=== PATIENT | female | born 1995 | race Caucasian/White ===

== ENCOUNTER 2016-09-21 15:05 | Emergency (ER) | payer SELFPAY ==
--- NOTE | 2016-09-21 16:54 | ER Document Report ---
ED Medical Screen (RME) - General Chief Complaint: Abdominal Cramping Stated Complaint: ABDOMINAL CRAMPING Time seen by provider: 16:53 Mode of Arrival: Ambulatory Information source: Patient Notes: This is a 21-year-old female 3 para 2, positive home test this week, presents with lower abdominal cramping. Patient denies vaginal bleeding. TRAVEL OUTSIDE OF THE [place] IN LAST 30 DAYS: No - HPI Onset: Yesterday Onset/Duration: Gradual Quality of pain: No pain Severity: None Pain Level: Denies Associated Symptoms: denies: Chills, Fever, Shortness of breath Exacerbated by: Denies Relieved by: Denies Similar symptoms previously: No Recently seen / treated by doctor: No - Related Data Smoking: Non-smoker Frequency of alcohol use: None Drug Abuse: None Allergies/Adverse Reactions: shellfish derived Allergy (Verified 09/21/16 15:37) Past Medical History - General Information source: Patient - Social History Cigarette use (# per day): No Chew tobacco use (# tins/day): No Frequency of alcohol use: None Drug Abuse: None Lives with: Family Family history: Reviewed & Not Pertinent - Medical History Medical History: Negative Renal/ Medical History: Denies: Hx Peritoneal Dialysis Past Surgical History: Reports: Hx Oral Surgery - [place]eth Review of Systems - Review of Systems Constitutional: No symptoms reported EENT: No symptoms reported Cardiovascular: No symptoms reported Respiratory: No symptoms reported Gastrointestinal: See HPI Genitourinary: See HPI Female Genitourinary: See HPI Musculoskeletal: No symptoms reported Skin: No symptoms reported Hematologic/Lymphatic: No symptoms reported Neurological/Psychological: No symptoms reported Physical Exam - Vital signs Vitals: Temp Pulse Resp BP Pulse Ox 98.6 F 72 16 113/72 98 09/21/16 15:36 09/21/16 15:36 09/21/16 15:36 09/21/16 15:36 09/21/16 15:36 Notes: Physical exam: GENERAL: 81-year-old female, alert and oriented 3, no acute distress HEAD: Atraumatic, normocephalic. EYES: Pupils equal round and reactive to light, extraocular movements intact, sclera anicteric, conjunctiva are normal. ENT: TMs normal, nares patent, oropharynx clear without exudates. Moist mucous membranes. NECK: Normal range of motion, supple without lymphadenopathy or JVD. LUNGS: Breath sounds clear to auscultation bilaterally and equal. No wheezes rales or rhonchi. HEART: Regular rate and rhythm without murmurs, rubs or gallops. ABDOMEN: Soft, normoactive bowel sounds. No tenderness to palpation. No guarding, no rebound. No masses appreciated. EXTREMITIES: Normal range of motion, no pitting or edema. No clubbing or cyanosis. NEUROLOGICAL: Cranial nerves II through XII grossly intact. Normal speech, normal gait. PSYCH: Normal mood, normal affect. SKIN: Warm, Dry, normal turgor, no rashes or lesions noted. Course - Vital Signs Vital signs: Temp Pulse Resp BP Pulse Ox 98.6 F 72 16 113/72 98 09/21/16 15:36 09/21/16 15:36 09/21/16 15:36 09/21/16 15:36 09/21/16 15:36 - Laboratory Result Diagrams: 09/21/16 17:20 Laboratory results interpreted by me: 09/21/16 17:20 Urine Blood SMALL H Doctor's Discharge - Discharge Clinical Impression: pelvic cramping Condition: Stable Disposition: HOME, SELF-CARE Additional Instructions: As we discussed, the test was negative. This is a blood test soda is very accurate. At this point, I would take Tylenol for cramping follow-up with your doctor. Return to the emergency room for worsening pain, worsening cramping or any concerns he getting worse.
[2016-09-21 18:07] LABS: APPEARANCE,URINE CLEAR; BILIRUBIN,URINE NEGATIVE (NEGATIVE); GLUCOSE, URINE NEGATIVE (NEGATIVE); KETONES,URINE NEGATIVE (NEGATIVE); LEUKOCYTE ESTERASE,URINE NEGATIVE (NEGATIVE); NITRITE,URINE NEGATIVE (NEGATIVE); PROTEIN,URINE NEGATIVE (NEGATIVE); URINE SPECIFIC GRAVITY 1.016; UROBILINOGEN,URINE NEGATIVE mg/dL (<2.0)
[2016-09-21 18:14] LABS: ABSOLUTE EOSINOPHILS # (AUTO) 0.3 10^3/uL (0.0-0.6); ABSOLUTE LYMPHOCYTES (AUTO) 2.7 10^3/uL (0.5-4.7); ABSOLUTE MONOCYTES (AUTO) 0.3 10^3/uL (0.1-1.4); BASOPHILS % (AUTO) 0.7 % (0-2); EOSINOPHILS % (AUTO) 4.8 % (0-6); HEMATOCRIT 41.1 % (36.0-47.0); HEMOGLOBIN 13.5 g/dL (12.0-15.5); HGB HCT DIFFERENCE -0.6; MEAN CORPUSCULAR HEMOGLOBIN 29.4 pg (27.0-33.4); MEAN CORPUSCULAR HGB CONC 32.9 g/dL (32.0-36.0); MEAN CORPUSCULAR VOLUME 89 fl (80-97); MONOCYTES % (AUTO) 4.3 % (3-13); RED BLOOD COUNT 4.59 10^6/uL (3.72-5.28); RED CELL DISTRIBUTION WIDTH 12.8 % (11.5-14.0); SEGMENTED NEUTROPHILS % (AUTO) 48.2 % (42-78); WHITE BLOOD COUNT 6.3 10^3/uL (4.0-10.5)
[2016-09-21 19:23] VITALS: BP 126/78
== END 2016-09-21 19:21 | disposition home or self-care (01) ==
LOC: ER 15:05
DX: R10.2 Pelvic and perineal pain (principal); Z91.013 Allergy to seafood
CPT/HCPCS: 36415; 81001; 84702; 85025; 86900; 86901; 99284

== ENCOUNTER 2017-06-29 17:41 | Emergency (ER) | payer SELFPAY ==
[2017-06-29 18:36] VITALS: BP 115/77
--- NOTE | 2017-06-29 22:14 | ER Document Report ---
HPI - HPI Patient complains to provider of: Vaginal bleeding Pain Level: 3 Context: Patient is a 21-year-old female who comes emergency department for chief complaint of irregular menstrual cycle. She states that she believes she is having implantation bleeding, she had bleeding started 3 days ago, increased 2 days ago, and now she has light spotting. She denies dizziness or passing out, states she has been tired. She denies pain. She denies vomiting, vaginal discharge, dysuria, flank pain, fever. She has been several times before. She denies any daily medications or contraceptives. She states based on the way she feels over the past days and weeks she thinks she is . Past Medical History - General Information source: Patient - Social History Smoking Status: Never Smoker Frequency of alcohol use: None Drug Abuse: None Lives with: Family Family History: Reviewed & Not Pertinent - Medical History Medical History: Negative Renal/ Medical History: Denies: Hx Peritoneal Dialysis Past Surgical History: Reports: Hx Oral Surgery - [place] Teeth - Immunizations Immunizations up to date: Yes Hx Diphtheria, Pertussis, Tetanus Vaccination: Yes Vertical Provider Document - CONSTITUTIONAL General Appearance: WD/WN, No Apparent Distress - INFECTION CONTROL TRAVEL OUTSIDE OF THE [place] IN LAST 30 DAYS: No - HEENT HEENT: Atraumatic, Normocephalic - NECK Neck: Normal Inspection - RESPIRATORY Respiratory: Breath Sounds Normal, No Respiratory Distress O2 Sat by Pulse Oximetry: 100 - CARDIOVASCULAR Cardiovascular: Regular Rate, Regular Rhythm - GI/ABDOMEN Gastrointestinal: Abdomen Soft, Abdomen Non-Tender. negative: Abdomen Tender, Abdominal Guarding - BACK Back: Normal Inspection - MUSCULOSKELETAL/EXTREMETIES Musculoskeletal/Extremeties: MAEW, FROM, Non-Tender - NEURO Level of Consciousness: Awake, Alert, Appropriate - DERM Integumentary: Warm, Dry, No Rash Course - Re-evaluation Re-evalutation: Soft and nontender abdomen/pelvis. Patient denies any current symptoms other than intermittent bleeding. She thinks she is and bleeding. CBC unremarkable, hCG is negative. Vital signs unremarkable, patient continues to be well-appearing on reexamination with no current symptoms. I did discuss an ultrasound and additional workup, after discussion this was declined. Patient to follow up routinely with her provider, discussed return precautions, patient states understanding and agreement. - Vital Signs Vital signs: Temp Pulse Resp BP Pulse Ox 98.0 F 60 16 115/77 100 06/29/17 18:30 06/29/17 18:30 06/29/17 18:30 06/29/17 18:30 06/29/17 18:30 - Laboratory Result Diagrams: 06/29/17 22:22 Discharge - Discharge Clinical Impression: Metrorrhagia Condition: Stable Disposition: HOME, SELF-CARE Additional Instructions: Your test is negative. Your blood counts are normal. The exact cause of your irregular bleeding is uncertain at this time. Follow- up with primary care or [facility] [employer] [employer] for additional evaluation and management. Return for any concerning symptoms including severe bleeding, passing out, abdominal/pelvic pain, fever, or any other concerning symptoms.
[2017-06-29 22:35] LABS: ABSOLUTE EOSINOPHILS # (AUTO) 0.2 10^3/uL (0.0-0.6); ABSOLUTE LYMPHOCYTES (AUTO) 3.3 10^3/uL (0.5-4.7); ABSOLUTE MONOCYTES (AUTO) 0.3 10^3/uL (0.1-1.4); ABSOLUTE NEUT (AUTO) 2.4 10^3/uL (1.7-8.2); BASOPHILS % (AUTO) 0.5 % (0-2); EOSINOPHILS % (AUTO) 2.5 % (0-6); HEMATOCRIT 43.4 % (36.0-47.0); HEMOGLOBIN 14.6 g/dL (12.0-15.5); MEAN CORPUSCULAR HEMOGLOBIN 29.8 pg (27.0-33.4); MEAN CORPUSCULAR HGB CONC 33.8 g/dL (32.0-36.0); MEAN CORPUSCULAR VOLUME 88 fl (80-97); MONOCYTES % (AUTO) 5.4 % (3-13); PLATELET COUNT 215 10^3/uL (150-450); RED BLOOD COUNT 4.91 10^6/uL (3.72-5.28); RED CELL DISTRIBUTION WIDTH 12.8 % (11.5-14.0); SEGMENTED NEUTROPHILS % (AUTO) 38.6 % (42-78); TOTAL CELLS COUNTED % (AUTO) 100 %; WHITE BLOOD COUNT 6.2 10^3/uL (4.0-10.5)
== END 2017-06-29 23:44 | disposition home or self-care (01) ==
LOC: ER 17:41
DX: N92.1 Excessive and frequent menstruation with irregular cycle (principal)
CPT/HCPCS: 36415; 84702; 85025; 99284

== ENCOUNTER 2017-09-28 13:56 | Emergency (ER) | payer SELFPAY ==
--- NOTE | 2017-09-28 15:16 | ER Document Report ---
ED Medical Screen (RME) - General Chief Complaint: Lower Abdominal Pain Stated Complaint: STOMACH/BACK PAIN Time Seen by Provider: 09/28/17 15:10 Notes: RAPID MEDICAL EVALUATION DISCLOSURE I have seen this patient as part of a Rapid Medical Evaluation and, if applicable, placed any initially appropriate orders. The patient will be seen and fully evaluated, including a full history and physical exam, by a provider ( in Main ED or Fast Track) when a room becomes available. 22-year-old female here with complaints of urinary frequency for the past 1 week with associated nausea and for the past few days has had some left lower quadrant abdominal pain as well as left lower back pain. She does not have any dysuria fevers chills vaginal bleeding/bleeding nausea vomiting. This does not feel like her previous UTI because she normally has dysuria with them. EXAM CTAB RRR Minimal to mild LLQ TTP No CVA tenderness TRAVEL OUTSIDE OF THE [place] IN LAST 30 DAYS: No - Related Data Allergies/Adverse Reactions: shellfish derived Allergy (Verified 09/28/17 14:02) Past Medical History - Social History Family history: Reviewed & Not Pertinent Renal/ Medical History: Denies: Hx Peritoneal Dialysis Past Surgical History: Reports: Hx Oral Surgery - [place] Teeth - Immunizations Immunizations up to date: Yes Hx Diphtheria, Pertussis, Tetanus Vaccination: Yes Physical Exam - Vital signs Vitals: Temp Pulse Resp BP Pulse Ox 98.7 F 84 16 104/73 98 09/28/17 14:11 09/28/17 14:11 09/28/17 14:11 09/28/17 14:11 09/28/17 14:11 Course - Vital Signs Vital signs: Temp Pulse Resp BP Pulse Ox 98.7 F 84 16 104/73 98 09/28/17 14:11 09/28/17 14:11 09/28/17 14:11 09/28/17 14:11 09/28/17 14:11
--- NOTE | 2017-09-28 15:37 | ER Document Report ---
ED GI/ - General Chief Complaint: Lower Abdominal Pain Stated Complaint: STOMACH/BACK PAIN Time Seen by Provider: 09/28/17 15:10 Mode of Arrival: Ambulatory Information source: Patient TRAVEL OUTSIDE OF THE [place] IN LAST 30 DAYS: No - HPI Patient complains to provider of: Pelvic pain Notes: 09/28/17 15:35 Patient is here with complaints of left pelvic pain. States the pain is been present for the last 2 days. The pain started in the left pelvic area yesterday she started having some left low back pain. She has had nausea, but denies any vomiting or diarrhea. No fever. No dysuria or hematuria. No vaginal bleeding or vaginal discharge. She denies any flank pain. She denies any prior abdominal surgeries. No history of ovarian cyst or kidney stones. No prior ectopic . She denies any chest pain or shortness of breath. She states the pain is fairly constant but the intensity waxes and wanes. States that the pain is worse with intercourse. No rashes. Her last normal menstrual period was at the end of last month. No other complaints at this time. - Related Data Allergies/Adverse Reactions: shellfish derived Allergy (Verified 09/28/17 14:02) Past Medical History - Social History Smoking Status: Current Every Day Smoker Chew tobacco use (# tins/day): No Frequency of alcohol use: None Drug Abuse: None Family History: Reviewed & Not Pertinent Patient has suicidal ideation: No Patient has homicidal ideation: No Renal/ Medical History: Denies: Hx Peritoneal Dialysis Past Surgical History: Reports: Hx Oral Surgery - [place] Teeth - Immunizations Immunizations up to date: Yes Hx Diphtheria, Pertussis, Tetanus Vaccination: Yes Review of Systems - Review of Systems -: Yes All other systems reviewed and negative Physical Exam - Vital signs Vitals: Temp Pulse Resp BP Pulse Ox 98.7 F 84 16 104/73 98 09/28/17 14:11 09/28/17 14:11 09/28/17 14:11 09/28/17 14:11 09/28/17 14:11 - Notes Notes: GENERAL: alert, cooperative, nontoxic, no distress. HEAD: normocephalic, atraumatic EYES: conjunctiva pink without discharge, no external redness or swelling. EARS: no external swelling, no external redness NOSE: atraumatic, no external swelling MOUTH/THROAT: mucous membranes moist and pink, posterior pharynx without erythema, swelling, exudate. No trismus or drooling. NECK: soft, supple, full range of motion, no meningismus. CHEST: no distress, lungs clear and equal throughout. No wheezing, rales, rhonchi. CARDIAC: regular rate and rhythm, no murmur, normal capillary refill, normal pulses. No peripheral edema noted. ABDOMEN: Soft, mild tenderness to palpation of the left pelvis. No rebound tenderness or guarding. No right lower quadrant tenderness. No mass. BACK: full range of motion, no CVA tenderness. EXTREMITIES: full range of motion of all extremities. No redness, no swelling. NEURO: alert and oriented x 3, no focal deficits, full range of motion of all extremities. PYSCH: appropriate mood, affect. Patient is cooperative. SKIN: pink, warm, dry, no rash. : Performed with female pickling machine operator at the bedside. No external lesions. Vaginal mucosa pink and moist. Cervix is closed. No cervical lesions. No vaginal discharge or bleeding. No cervical motion tenderness. Mild left adnexal tenderness on bimanual exam with no obvious mass. No right-sided tenderness. Course - Re-evaluation Re-evalutation: 09/28/17 17:39 Patient is nontoxic appearing with stable vitals. She is here with complaints of left pelvic pain for the last few days. No fevers. On exam she has some mild left-sided pelvic pain and left adnexal pain on bimanual exam. Pelvic exam was otherwise unremarkable. She has no right lower quadrant abdominal tenderness. No fevers. Urinalysis shows no signs of infection. Urine is negative. Wet prep shows bacterial vaginosis. No trichomonas. Gonorrhea and Chlamydia cultures are currently pending, the patient is being treated with Rocephin and Zithromax at this time. She will be discharged home with Flagyl for bacterial vaginosis. Prescription for Naprosyn to take as needed for pain. She had an ultrasound showing some free pelvic fluid with normal flow and no other acute abnormalities. It is possible that the patient could have had a left ovarian cyst that ruptured and that could certainly be the source of her pain and the free fluid within her pelvis. This point there is no sign of ectopic , tubo-ovarian abscess, PID. The patient's emergency department workup and current diagnosis were explained to the patient and or family. Follow-up instructions were provided. Medications if prescribed were discussed. Instructions for when to return to the emergency department including specific worrisome symptoms were discussed with the patient and/or family. - Vital Signs Vital signs: Temp Pulse Resp BP Pulse Ox 98.7 F 84 16 104/73 98 09/28/17 14:11 09/28/17 14:11 09/28/17 15:10 09/28/17 14:11 09/28/17 14:11 - Laboratory Laboratory results interpreted by me: 09/28/17 15:34 Urine Blood SMALL H Ur Leukocyte Esterase TRACE H - Diagnostic Test Radiology reviewed: Image reviewed, Reports reviewed - No acute findings on the ultrasound of the pelvis. Free fluid. Discharge - Discharge Clinical Impression: Pelvic pain, Bacterial vaginosis Condition: Stable Disposition: HOME, SELF-CARE Instructions: Vaginosis, Bacterial ([facility]), Pelvic Pain ([facility]) Additional Instructions: Take medications as prescribed. Drink lots of fluids. Do not drink alcohol while taking the Flagyl. Follow-up if not better in the next 3-5 days, follow- up sooner for worsening pain, high fever, persistent vomiting, severe vaginal bleeding, or for any further concerns. Prescriptions: Metronidazole [Flagyl 500 mg Tablet] 500 mg PO Q6H #28 tablet Naproxen [Naprosyn] 500 mg PO BID #20 tablet Forms: Smoking Cessation Education Referrals: [facility] [Provider Group] - Follow up as needed
[2017-09-28 16:11] LABS: APPEARANCE,URINE SLIGHTLY-CLOUDY; BILIRUBIN,URINE NEGATIVE (NEGATIVE); COLOR,URINE YELLOW; GLUCOSE, URINE NEGATIVE (NEGATIVE); KETONES,URINE NEGATIVE (NEGATIVE); LEUKOCYTE ESTERASE,URINE TRACE (NEGATIVE); NITRITE,URINE NEGATIVE (NEGATIVE); PROTEIN,URINE NEGATIVE (NEGATIVE); URINE SPECIFIC GRAVITY 1.024; UROBILINOGEN,URINE NEGATIVE mg/dL (<2.0)
[2017-09-28 17:07] LABS: BACTERIA (WET MOUNT) 3+ BACTERIA SEEN; EPITHELIALS (WET MOUNT) 3+ EPITHELIALS SEEN; T.VAGINALIS (WET MOUNT) NO TRICHOMONAS SEEN; WBCS (WET MOUNT) RARE WBCS SEEN; YEAST (WET MOUNT) NO YEAST SEEN
--- NOTE | 2017-09-28 17:36 | RADIOLOGY REPORT (SQ) ---
EXAM DESCRIPTION: U/S NON OB PEL TV W/DOPPLER COMPLETED DATE/TIME: 09/28/2017 5:22 pm REASON FOR STUDY: left pelvic pain COMPARISON: Pelvic ultrasound 01/27/2015 TECHNIQUE: Dynamic and static grayscale images acquired of the pelvis via transvaginal approach and recorded on PACS. Additional selected color Doppler and spectral images recorded. LIMITATIONS: None. FINDINGS: UTERUS: Contour normal. No mass. Uterus measures 8.4 x 4.8 x 4.2 cm in size ENDOMETRIAL STRIPE: No focal or generalized thickening. No masses. 11 mm in thickness. IUD seen on prior ultrasound 01/27/2015 is no longer identified. CERVIX: No nabothian cysts. Cervix is closed, 3.6 cm in length. RIGHT OVARY AND DOPPLER: Normal size. No worrisome masses. Normal arterial vascular flow without evid ence for torsion. Right ovary is 2.4 x 1.7 x 1.2 cm in size. LEFT OVARY AND DOPPLER: Normal size. No worrisome masses. Normal arterial vascular flow without evide nce for torsion. Left ovary is 2.4 x 2 x 1.5 cm in size. FREE FLUID: Small amount of posterior cul-de-sac free fluid OTHER: Results discussed with Willi Baxter in the emergency room. Patient's test is negative according to Willi Baxter IMPRESSION: TRACE CUL-DE-SAC FREE FLUID. OTHERWISE, UNREMARKABLE TRANSVAGINAL PELVIC ULTRASOUND. TECHNICAL DOCUMENTATION: JOB ID: [id number] Fixed - Parking Tickets- All Rights Reserved Rev-10/02 Reading location - IP/workstation name: [email or web address]
[2017-09-28] MEDS ORDERED: AZITHROMYCIN 250 MG TABLET PO ONE (17:38)
[2017-09-28] MEDS ORDERED: CEFTRIAXONE INJ 250 MG VIAL IM ONE (17:38)
[2017-09-28 18:02] VITALS: BP 105/54
[2017-09-28 18:33] LABS: CHLAM PCR NOT DETECTED (NOT DETECT); GON PCR NOT DETECTED (NOT DETECT)
== END 2017-09-28 18:02 | disposition home or self-care (01) ==
LOC: ER 13:56
DX: N76.0 Acute vaginitis (principal); B96.89 Other specified bacterial agents as the cause of diseases classified elsewhere; R18.8 Other ascites; R10.2 Pelvic and perineal pain; M54.5 Low back pain; R11.0 Nausea; F17.200 Nicotine dependence, unspecified, uncomplicated; Z91.013 Allergy to seafood
CPT/HCPCS: 99284; 96372; 87210; 81025; 81001; 87491; 87591; 76830; 93976; J0696

== ENCOUNTER → 2019-08-08 | Outpatient (CLI) | payer OTHER ==
[2019-08-08 09:04] LABS: A TYPE INFLUENZA AG NEGATIVE (NEGATIVE)
[2019-08-08 09:05] LABS: B INFLUENZA AG NEGATIVE (NEGATIVE)
== END ==
LOC: RDC 08:16
PROVIDERS: ATTEND Registered Nurse
DX: Z20.828 Contact with and (suspected) exposure to other viral communicable diseases (principal)
CPT/HCPCS: 36415; 87070; 87635; 87804; 87880